=== PATIENT | female | born 1965 | race Caucasian/White ===

== ENCOUNTER 2023-05-24 11:29 | Emergency (ER) | payer OTHER, SELFPAY ==
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
[2023-05-24 11:35] VITALS: BP 140/0; PULSE 99; O2SAT 99
[2023-05-24 11:41] VITALS: BP 160/85; PULSE 78; RESP 19; TEMP 36.6; O2SAT 98; BMI 34.9
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
[2023-05-24] MEDS: Acetaminophen 325 MG TABLET 650 MG PO (13:52)
[2023-05-24] MEDS: Ondansetron ODT 4 MG TAB.RAPDIS TRANSLINGU (13:52)
--- NOTE | 2023-05-24 14:33 | PC.NURSE ---
alert, speech clear, denies pain but still has dizziness, ct complete, awaiting results
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
[2023-05-24 15:52] VITALS: PULSE 70; RESP 16; O2SAT 98
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
== END 2023-05-24 19:12 | disposition home or self-care (01) ==
PROVIDERS: Emergency Provider Emergency Medicine Emergency Medical Services
DX: S09.90XA Unspecified injury of head, initial encounter (principal); Y04.2XXA Assault by strike against or bumped into by another person, initial encounter; Y93.89 Activity, other specified; Y92.049 Unspecified place in boarding-house as the place of occurrence of the external cause; Y99.9 Unspecified external cause status
CPT/HCPCS: 70450; 99284